=== PATIENT | female | born 1995 | race Caucasian/White ===

== ENCOUNTER 2017-01-26 23:55 | Emergency (ER) | payer OTHER ==
[2017-01-27 00:24] VITALS: TEMP 98.3
--- NOTE | 2017-01-27 00:51 | ED ---
General Adult HPI - General Chief complaint: Chest Pain Stated complaint: Chest Pain Time Seen by Provider: 01/27/17 00:40 Source: patient, RN notes reviewed Mode of arrival: wheelchair Limitations: no limitations - History of Present Illness Initial comments: Patient 22-year-old female is no significant past medical history, who presents emergency room today with a chief complaint of chest pain on and off over the last 4 hours. Patient states that it started after work. States she was at home sitting when it started. She describes a sharp pain that comes and goes. States the last just a few seconds at a time. Patient denies anything that makes it better or worse. She denies ever having similar symptoms in the past. She denies any other complaints associated symptoms at this time. Patient denies any recent fever, chills, shortness of breath, back pain, abdominal pain , nausea or vomiting, numbness or tingling, dysuria or hematuria, constipation or diarrhea, headaches or visual changes, or any other complaints. - Related Data Previous Rx's Medication Instructions Recorded Ibuprofen [Motrin] 600 mg PO Q6HR PRN #20 day 01/27/17 Allergies Allergy/AdvReac Type Severity Reaction Status Date / Time No Known Allergies Allergy Verified 01/27/17 00:03 Review of Systems ROS Statement: Those systems with pertinent positive or pertinent negative responses have been documented in the HPI. ROS Other: All systems not noted in ROS Statement are negative. Past Medical History Past Medical History: No Reported History History of Any Multi-Drug Resistant Organisms: None Reported Past Surgical History: No Surgical Hx Reported Past Psychological History: No Psychological Hx Reported Smoking Status: Never smoker Past Alcohol Use History: None Reported Past Drug Use History: None Reported General Exam - General Exam Comments Initial Comments: General: The patient is awake and alert, in no distress, and does not appear acutely ill. Eye: Pupils are equal, round and reactive to light, extra-ocular movements are intact. No nystagmus. There is normal conjunctiva bilaterally. No signs of icterus. Ears, nose, mouth and throat: There are moist mucous membranes and no oral lesions. Neck: The neck is supple, there is no tenderness or JVD. Cardiovascular: There is a regular rate and rhythm. No murmur, rub or gallop is appreciated. Respiratory: Lungs are clear to auscultation, respirations are non-labored, breath sounds are equal. No wheezes, stridor, rales, or rhonchi. Gastrointestinal: Soft, non-distended, non-tender abdomen without masses or organomegaly noted. There is no rebound or guarding present. No CVA tenderness. Bowel sounds are unremarkable. Musculoskeletal: Normal ROM, no tenderness. Strength 5/5. Sensation intact. Pulses equal bilaterally 2+. Neurological: A&O x 3. CN II-XII intact, There are no obvious motor or sensory deficits. Coordination appears grossly intact. Speech is normal. Skin: Skin is warm and dry and no rashes or lesions are noted. Psychiatric: Cooperative, appropriate mood & affect, normal judgment. Limitations: no limitations Course Vital Signs 01/27/17 00:00 Temperature 98.3 F Pulse Rate 83 Respiratory 20 Rate Blood Pressure 125/74 O2 Sat by Pulse 98 Oximetry EKG Findings - EKG Comments: EKG Findings:: EKG performed at 035: A 12-lead EKG was performed and interpreted by me as showing the following: Rate is 78, and rhythm is normal sinus. There are normal QRS complexes and normal R-wave progression. ST segments have no elevation or depression, and NE segments appear normal. Medical Decision Making - Medical Decision Making Patient reexamined at this time shows no signs of distress. Patient's chest x- ray reviewed and is negative for any acute abnormalities. Results were discussed with the patient. At this time patient feeling better after ibuprofen given here in the emergency room. She states she's currently pain- free. Patient will be discharged home advise follow family doctor tomorrow morning. Advised return if any symptoms increase worsen or for any other concerns. - Lab Data Lab Results 01/27/17 Range/Units 01:25 Urine HCG, Qual Not Detected (Not Detectd) Disposition Clinical Impression: Chest pain Disposition: HOME SELF-CARE Condition: Good Instructions: Chest Pain (ED) Additional Instructions: Please use medication as discussed. Please follow-up with family doctor in the next 1-2 days. Please return to emergency room if the symptoms increase or worsen or for any other concerns. Prescriptions: Ibuprofen [Motrin] 600 mg PO Q6HR PRN #20 day PRN Reason: Pain Time of Disposition: 02:42
[2017-01-27] MEDS ORDERED: IBUPROFEN 600 MG TAB PO STA (01:41)
--- NOTE | 2017-01-27 02:41 | XR ---
EXAM: XR Chest, 2 Views CLINICAL HISTORY: Reason: cough TECHNIQUE: Frontal and lateral views of the chest. COMPARISON: 09/19/15. FINDINGS: Lungs: Mild peribronchial thickening. No lobar consolidation. Small nodular opacity measuring 3 mm in the right upper lung field is similar to prior study. Additional nodular opacities in the lower lungs also appear unchanged. Pleural space: Unremarkable. No pneumothorax. Heart: Stable cardiomediastinal silhouette. Mediastinum: See above. Bones/joints: Unremarkable. IMPRESSION: Mild peribronchial thickening. No lobar consolidation.
[2017-01-27 02:52] VITALS: BP 118/65; PULSE 73; RESP 16
== END 2017-01-27 02:52 | disposition home or self-care (01) ==
LOC: EC 23:55
DX: R07.9 Chest pain, unspecified (principal)
CPT/HCPCS: 71020; 81025; 93005; 99285